=== PATIENT | female | born 1955 | race African-American/Black ===

== ENCOUNTER 2018-03-17 09:57 | Day surgery (SDC) | payer MEDICARE ==
[~2018-03-17] VITALS: Ht 167.6 cm; Wt 146.5 kg
--- NOTE | ~2018-03-17 | OP ---
PATIENT NAME: MARIA ELENA FOURNIER MEDICAL RECORD: [id number] :57 LOCATION:D[facility] ADMISSION DATE: SURGEON: COLIN REBOLLEDO DATE OF OPERATION: 03/17/2018 SURGEON: Colin Rebolledo DPM PREOPERATIVE DIAGNOSIS: Plantar fasciitis, left foot. POSTOPERATIVE DIAGNOSIS: Plantar fasciitis, left foot. PROCEDURE: Open partial plantar fasciotomy, left foot. ANESTHESIA: Local with monitored anesthesia care. HEMOSTASIS: Maintained on the field. ESTIMATED BLOOD LOSS: Minimal. MATERIALS: A 4-0 nylon. INJECTABLES: A 10 cc of 0.5% bupivacaine plain. INDICATION: The patient has longstanding history of pain associated with the plantar fascia of the left foot. She has not improved with injection therapy as well as night splint and boot immobilization. She is here today for surgical correction. We have reviewed the proposed procedure, risks and benefits were discussed. Complications were reviewed. Her questions were answered. DESCRIPTION OF PROCEDURE: The patient was brought in the operating room and placed on the operating table in supine position. A timeout was called with Dr. Rebolledo, who identified the patient, the surgical site, and the surgery to be performed. Once appropriate anesthesia was obtained, the foot was prepped and draped in the usual aseptic manner. Attention was directed to the plantar medial aspect of the left heel where a 2-cm linear incision was made. This incision was carried deep to soft tissue with care being taken to retract all vital neurovascular structures. All bleeders were cauterized along the way. Through this incision, the plantar fascia was identified and found to be tight. Next, utilizing a fresh 15 blade, the medial one-third of the plantar fascia was sharply transected from lateral to medial. Release of the plantar fascia was noted. The surgical site was then investigated for any remaining tight plantar fascial bands and none were noted. The surgical site was then irrigated with copious amounts of normal sterile saline via bulb syringe. The skin margins were reapproximated and coapted using 4-0 nylon. A dressing consisting of Adaptic, Xeroform, 4 x 4's, Kerlix, and Yamil bandage was applied to the left foot. The capillary refill time was immediate to all digits, status post procedure. The patient will be discharged home with instructions to ice and elevate the left foot. She has a boot to help further offload the foot. She will follow up with her in the office next week. She has my cell phone number for any after Hours complications and there were no difficulties with this procedure. OPERATIVE REPORT [id number] MARIA ELENA FOURNIER TRANSINT:[id number] Voice Confirmation ID: [id number] DOCUMENT ID: [id number] COLIN REBOLLEDO at 1200 CC: [id number] DICTATION DATE: 03/17/18 [address] DRIVER: 03/17/18 1620 [facility] 03/17/18 [id number] [place] [address]
[~2018-03-17 09:57] MED LIST: ADVAIR 250/501 DISK INH; CATAPRES0.2 MG PO; COUMADIN7.5 MG PO; GLIMEPIRIDE2 MG PO; IPRAT-ALBUT 0.5-3 ML UPD; K-DUR20 MEQ PO; LASIX80 MG PO; TOPROL XL100 MG PO; ZYLOPRIM300 MG PO
[2018-03-17 11:41] LABS: HEMATOCRIT 38.2 % (36.0-48.0); HEMOGLOBIN 12.5 g/dL (12-16); MCH 28.4 pg (26.0-34.0); MCHC 32.7 g/dL (31.0-37.0); MCV 86.8 fL (80.0-100.0); MEAN PLATELET VOLUME 10.3 fL (7.4-10.4); RBC 4.4 10x6/uL (4.00-5.40); RDW 14.1 % (11.5-14.5); WBC 6.8 10x3/uL (4.8-10.8)
[2018-03-17 11:59] LABS: ANION GAP 10.4 mmol/L (8-16); APTT 32.2 SECONDS (22.8-39.4); CALCIUM 9.5 mg/dL (8.5-10.1); CARBON DIOXIDE 30.1 mmol/L (21.0-32.0); CREATININE - SERUM 0.9 mg/dL (0.6-1.3); INR 1.1 (0.85-1.17); POTASSIUM - SERUM 3.5 mmol/L (3.5-5.1); PROTIME 13.8 SECONDS (11.6-15.0)
[2018-03-17] MEDS ORDERED: SINGULAIR10 MG PO (12:27)
[2018-03-17 12:30] VITALS: BP 152/87; Ht 167.6 cm; Wt 146.5 kg
== END 2018-03-17 16:15 | disposition home or self-care (01) ==
LOC: D.OPS 09:57 → D.PAN 12:45 → D.OPS 16:15
PROVIDERS: Anesthesiology
DX: M72.2 Plantar fascial fibromatosis (principal); J45.909 Unspecified asthma, uncomplicated; I10 Essential (primary) hypertension; E11.9 Type 2 diabetes mellitus without complications; G47.30 Sleep apnea, unspecified; E66.01 Morbid (severe) obesity due to excess calories; Z01.812 Encounter for preprocedural laboratory examination

== ENCOUNTER → 2018-05-31 10:21 | Outpatient (CLI) | payer MEDICARE ==
[2018-03-17 12:30] VITALS: BMI 52.2
[~2018-05-31 10:21] MED LIST changes: +SINGULAIR10 MG PO
[2018-06-02 03:12] LABS: ANGIOTENSIN CONVERTING ENZYME 79 U/L (14-82)
[2018-06-09 17:13] LABS: FUNGAL - ASP FLAVUS Negative (Neg:<1:1); FUNGAL - ASP NIGER Negative (Neg:<1:1); FUNGAL - ASPER FUMIGATUS Negative (Neg:<1:1)
== END | disposition home or self-care (01) ==
LOC: D.RT 10:00
PROVIDERS: Internal Medicine Pulmonary Disease
DX: J45.909 Unspecified asthma, uncomplicated (principal); R91.8 Other nonspecific abnormal finding of lung field